=== PATIENT | male | born 1985 | race Two or more races ===

== ENCOUNTER 2021-01-19 14:19 | Outpatient (CLI) | payer OTHER | END 2021-01-19 14:21 | disposition home or self-care (01) | LOC: LAB 14:19 | PROVIDERS: ATTEND Pediatrics Neonatal-Perinatal Medicine | DX: Z03.818 Encounter for observation for suspected exposure to other biological agents ruled out (principal); Z11.59 Encounter for screening for other viral diseases; Z20.828 Contact with and (suspected) exposure to other viral communicable diseases ==

== ENCOUNTER 2021-09-11 06:00 | Day surgery (SDC) | payer OTHER | END 2021-09-11 14:30 | disposition home or self-care (01) | LOC: CIR.AMB 06:00 | PROVIDERS: ATTEND Surgery | DX: Z30.2 Encounter for sterilization (principal); Z20.822 Contact with and (suspected) exposure to COVID-19 ==